=== PATIENT | female | born 1960 | race Asian ===

== ENCOUNTER 2021-02-20 06:21 | Day surgery (SDC) | payer OTHER ==
[~2021-02-20] VITALS: Ht 152.4 cm; Wt 68.0 kg
[2021-02-20] MEDS ORDERED: fentaNYL citrate 0.05 MG/ML VIAL ONE ×2 (07:59)
[2021-02-20] MEDS ORDERED: MIDAZOLAM 5 MG/5 ML VIAL ONE ×2 (08:00)
[2021-02-20] MEDS ORDERED: EPINEPHrine PFS 0.1 MG/ML SYR IVP ONE (08:58)
[2021-02-20] MEDS ORDERED: MIDAZOLAM 2 MG/2 ML VIAL IVP ONE (11:25)
[2021-02-20] MEDS ORDERED: fentaNYL citrate 0.05 MG/ML VIAL IVP ONE (11:25)
== END 2021-02-20 09:58 | disposition home or self-care (01) ==
LOC: MDS 06:21 → MMU 06:23 → MDS 09:58
PROVIDERS: ATTEND Internal Medicine Gastroenterology
DX: K62.5 Hemorrhage of anus and rectum (principal); D12.5 Benign neoplasm of sigmoid colon; K57.30 Diverticulosis of large intestine without perforation or abscess without bleeding; K20.90 Esophagitis, unspecified without bleeding; K59.00 Constipation, unspecified; K64.8 Other hemorrhoids; Z87.891 Personal history of nicotine dependence; Z90.710 Acquired absence of both cervix and uterus; Z90.49 Acquired absence of other specified parts of digestive tract; Z79.82 Long term (current) use of aspirin; Z79.899 Other long term (current) drug therapy
CPT/HCPCS: 43239; 45380; 45381; 45385; J0171; J2250; J3010; J7030

== ENCOUNTER 2023-11-13 09:10 | Day surgery (SDC) | payer OTHER ==
[~2023-11-13] VITALS: Ht 152.4 cm; Wt 58.5 kg
[2023-11-13] MEDS ORDERED: MIDAZOLAM 5 MG/5 ML VIAL ONE (10:47)
[2023-11-13] MEDS ORDERED: LIDOCAINE 2% 100 MG/5 ML UJET TP ONE (10:47)
[2023-11-13] MEDS ORDERED: fentaNYL citrate 0.05 MG/ML VIAL ONE (10:47)
[2023-11-13] MEDS: MIDAZOLAM 2 MG/2 ML VIAL IV ONE (11:02)
[2023-11-13] MEDS: fentaNYL citrate 0.05 MG/ML VIAL IVP ONE (11:02)
== END 2023-11-13 13:15 | disposition home or self-care (01) ==
LOC: MDS 09:10 → MMU 09:12 → MDS 13:15
PROVIDERS: ATTEND Internal Medicine Gastroenterology
DX: Z12.11 Encounter for screening for malignant neoplasm of colon (principal); K64.8 Other hemorrhoids; K57.30 Diverticulosis of large intestine without perforation or abscess without bleeding; K63.5 Polyp of colon; Z86.010 Personal history of colon polyps; K21.9 Gastro-esophageal reflux disease without esophagitis; K63.89 Other specified diseases of intestine; Z87.891 Personal history of nicotine dependence; Z79.899 Other long term (current) drug therapy; Z98.890 Other specified postprocedural states
CPT/HCPCS: 45385; J2250; J3010

== ENCOUNTER 2024-03-03 09:30 | Day surgery (SDC) | payer OTHER ==
[~2024-03-03] VITALS: Ht 152.4 cm; Wt 59.0 kg
[2024-03-03] MEDS ORDERED: LIDOCAINE 2% 100 MG/5 ML SYR IVP ONE (10:05)
[2024-03-03] MEDS ORDERED: SEVOFLURANE 250 ML BTL INH ONE (10:05)
[2024-03-03] MEDS ORDERED: fentaNYL citrate 0.05 MG/ML VIAL ONE (10:15)
[2024-03-03] MEDS: LIDOCAINE/EPI 1% 1:100000 20 ML VIAL INJ ONE (10:53)
[2024-03-03] MEDS: ceFAZolin 2,000 MG VIAL ONE (10:53)
[2024-03-03] MEDS: BUPIVACAINE-MPF 0.25% 30 ML VIAL INJ ONE (10:53)
[2024-03-03] MEDS ORDERED: PROPOFOL 200 MG/20 ML VIAL IV ONE (11:01)
[2024-03-03] MEDS ORDERED: ONDANSETRON 4 MG/2 ML VIAL ONE (11:01)
[2024-03-03] MEDS ORDERED: METOCLOPRAMIDE 10 MG/2 ML INJ VIAL ONE (11:01)
[2024-03-03] MEDS ORDERED: KETOROLAC 30 MG/ML VIAL ONE (11:01)
[2024-03-03] MEDS ORDERED: SUCCINYLCHOLINE CHLORIDE 200 MG/10 ML VIAL IVP ONE (11:01)
[2024-03-03] MEDS ORDERED: GLYCOPYRROLATE 0.2 MG/ML VIAL ONE (11:04)
[2024-03-03] MEDS ORDERED: DEXAMETHASONE 4 MG/ML VIAL ONE (11:04)
[2024-03-03] MEDS ORDERED: diphenhydrAMINE 50 MG/ML VIAL IVP PRN (11:30)
[2024-03-03] MEDS ORDERED: ONDANSETRON 4 MG/2 ML VIAL IVP PRN (11:30)
[2024-03-03] MEDS ORDERED: MEPERIDINE 25 MG/ML SYR IVP PRN (11:30)
[2024-03-03] MEDS ORDERED: HYDROmorphone 1 MG/ML AMP IVP PRN (11:30)
[2024-03-03] MEDS ORDERED: LACTATED RINGERS 1,000 ML IV SCH (11:30)
== END 2024-03-03 13:30 | disposition home or self-care (01) ==
LOC: MDS 09:30 → MMU 09:31 → MDS 13:30
PROVIDERS: ATTEND Surgery
DX: D17.1 Benign lipomatous neoplasm of skin and subcutaneous tissue of trunk (principal); I10 Essential (primary) hypertension; K21.9 Gastro-esophageal reflux disease without esophagitis; Z90.49 Acquired absence of other specified parts of digestive tract; Z90.710 Acquired absence of both cervix and uterus; Z79.82 Long term (current) use of aspirin; Z79.899 Other long term (current) drug therapy
CPT/HCPCS: 21931; 71045; 88304; J0330; J1100; J1885; J2001; J2405; J2704; J2765; J3010; J3490